=== PATIENT | male | born 1980 | race Caucasian/White ===

== ENCOUNTER 2017-12-27 09:52 | Emergency (ER) | payer MEDICAID ==
[~2017-12-27] VITALS: Ht 177.8 cm; Wt 102.1 kg
[2017-12-27] MEDS ORDERED: KETOROLAC 30 MG/1 ML ONE (10:52)
[2017-12-27] MEDS ORDERED: KETOROLAC 30 MG/1 ML IM ONE (11:00)
[2017-12-27 11:29] VITALS: BP 153/85
== END 2017-12-27 11:31 | disposition home or self-care (01) ==
LOC: ED 10:43
DX: M76.62 Achilles tendinitis, left leg (principal)
CPT/HCPCS: 73650; 96372; 99284; J1885

== ENCOUNTER 2019-12-04 07:56 | Emergency (ER) | payer SELFPAY ==
[~2019-12-04] VITALS: Ht 177.8 cm; Wt 99.9 kg
[2019-12-04 08:25] VITALS: BP 123/87
--- NOTE | 2019-12-04 08:28 | NUR ---
PT. TO ED THIS AM FOR C/O SOB, STATES HIS APPLE WATCH TOLD HIM HE WAS IN A-FIB; EKG IN TRIAGE DID CONFIRM THIS. PT. DENIES SOB AT REST AT THIS TIME. RATE MID 60'S TO 80 A-FIB ON MONITOR. PT. DENIES CP AT THIS TIME BUT DOES REPORT CP RADIATING DOWN LEFT ARM LAST NIGHT. DENIES ANY KNOWN PAST MEDICAL HX. MD STUDENT AT BS TO EVAL PT. AND DISCUSS POC WITH PT. AND FAMILY AT BS. PT. PLACED ON CONTINUOUS PULSE OX, B/P, AND HEART MONITORS. CALL LIGHT IN REACH. ALL SAFETY MEASURES OBSERVED. AWAITING ORDERS.
--- NOTE | 2019-12-04 08:54 | NUR ---
REPORT FROM ZEHRA CORONA.
--- NOTE | 2019-12-04 08:55 | NUR ---
REPORT TO ZEHRA BUENO TO ASSUME CARE. POC DISCUSSED.
[2019-12-04 09:23] LABS: BASOPHILS # (AUTO) 0.03 x10^3/uL (0-0.1); BASOPHILS % (AUTO) 0 % (0-1); EOSINOPHILS # (AUTO) 0.15 x10^3/uL (0-0.4); EOSINOPHILS % (AUTO) 2 % (1-7); LYMPHOCYTES # (AUTO) 2.25 x10^3/uL (1-3.4); LYMPHOCYTES % (AUTO) 30 % (22-44); MD NO; MEAN CORPUSCULAR HGB CONC 34.2 g/dL (33.2-36.2); MEAN CORPUSCULAR VOLUME 90.7 fL (81-97); MEAN PLATELET VOLUME 9.6 fL (7.4-10.4); MONOCYTES # (AUTO) 0.85 x10^3/uL (0.2-0.8); MONOCYTES % (AUTO) 11 % (2-9); NEUTROPHILS # (AUTO) 4.26 x10^3/uL (1.8-6.8); NEUTROPHILS % (AUTO) 57 % (42-75); PLATELET COUNT 261 x10^3/uL (130-400); RED BLOOD COUNT 5.13 x10^6/uL (4.38-5.82); RED CELL DISTRIBUTION WIDTH 13.4 % (9.4-14.8)
[2019-12-04 09:33] LABS: ALBUMIN 4.1 g/dL (3.4-5.0); ANION GAP 6 mmol/L (5-15); CALCIUM 8.6 mg/dL (8.5-10.1); CHLORIDE 111 mmol/L (98-107)
[2019-12-04 09:39] LABS: ALANINE AMINOTRANSFERASE 41 U/L (12-78); ALKALINE PHOSPHATASE 84 U/L (45-117); BILIRUBIN,TOTAL 0.8 mg/dL (0.2-1.0); TROPONIN I < 0.015 ng/mL (0.000-0.045)
== END 2019-12-04 11:20 | disposition home or self-care (01) ==
LOC: ED 11:12
DX: I48.0 Paroxysmal atrial fibrillation (principal); Z87.891 Personal history of nicotine dependence
CPT/HCPCS: 36415; 71046; 80053; 83880; 84443; 84484; 85025; 93005; 99285

== ENCOUNTER 2019-12-17 12:02 | Emergency (ER) | payer SELFPAY ==
[~2019-12-17] VITALS: Ht 177.8 cm; Wt 98.0 kg
[2019-12-17 12:11] VITALS: BP 138/72
--- NOTE | 2019-12-17 12:36 | NUR ---
PATIENT ARRIVES TO THE HOSPITAL WITH COMPLAINTS OF HAND SWELLING TO RIGHT HAND THAT HAS BEEN ONGOING FOR TEN DAYS. CMS INTACT AND CAP REFILL QUICK UNDER 3 SECONDS. SLIGHT SWELLING NOTED, NOT SIGNIFICANT. RECENT REPORT OF AFIB.
== END 2019-12-17 13:57 | disposition home or self-care (01) ==
LOC: ED 13:50
DX: I48.20 Chronic atrial fibrillation, unspecified (principal); G56.01 Carpal tunnel syndrome, right upper limb; L42 Pityriasis rosea; M79.641 Pain in right hand; M79.642 Pain in left hand
CPT/HCPCS: 29125; 93005; 99283

== ENCOUNTER → 2020-02-04 | Outpatient (CLI) | payer BC, MEDICAID | END | disposition home or self-care (01) | LOC: CVU 08:36 | PROVIDERS: ATTEND Physician Assistant Medical | DX: I48.91 Unspecified atrial fibrillation (principal) | CPT/HCPCS: 93306; 93356 ==

== ENCOUNTER 2020-05-22 16:28 | Emergency (ER) | payer MEDICAID ==
[~2020-05-22] VITALS: Ht 177.8 cm; Wt 104.8 kg
[2020-05-22] MEDS ORDERED: LIDOCAINE 1%-EPI 1:100K, 20ML ONE (16:52)
[2020-05-22] MEDS ORDERED: LIDOCAINE 1%-EPI 1:100K, 20ML SQ ONE (17:00)
[2020-05-22] MEDS ORDERED: DIPH,PERTUSS(ACELL),TET VAC/PF 0.5 ML IM-VACC ONE ×2 (17:15→17:30)
[2020-05-22] MEDS ORDERED: NEOSPORIN OINT. PKT 1 PACKET ONE (18:59)
[2020-05-22 19:00] VITALS: BP 141/88
== END 2020-05-22 19:03 | disposition home or self-care (01) ==
LOC: ED 17:29
DX: S01.01XA Laceration without foreign body of scalp, initial encounter (principal); S01.81XA Laceration without foreign body of other part of head, initial encounter; F10.129 Alcohol abuse with intoxication, unspecified; W22.8XXA Striking against or struck by other objects, initial encounter; Y93.89 Activity, other specified; Y92.828 Other wilderness area as the place of occurrence of the external cause; Y99.8 Other external cause status; Y90.9 Presence of alcohol in blood, level not specified
CPT/HCPCS: 12032; 70450; 72125; 90471; 90715; 99285; J3490